=== PATIENT | male | born 1975 | race Caucasian/White ===

== ENCOUNTER 2016-08-22 12:23 | Observation (INO) | payer OTHER ==
[~2016-08-22] VITALS: Ht 162.6 cm; Wt 70.0 kg
[2016-08-22 12:29] VITALS: BP 102/66; PULSE 89; RESP 17; TEMP 98.1; O2SAT 98
--- NOTE | 2016-08-22 13:55 | PD ---
HPI Chief Complaint: Abdominal Pain Time Seen by Provider: 13:48 Travel History International Travel<30 days: No Contact w/Intl Traveler<30days: No Traveled to known affect area: No History of Present Illness HPI Patient is a 41-year-old male presenting to emergency department stating that he could not find his ep specialist and needs help finding her. He stated that he had abdominal pain but has paperwork from [facility] from earlier this morning. Patient states that he had been nauseated and vomiting throughout the night and went to the hospital because of the abdominal pain. He states he feels better now but cannot find his caregiver. He stated that she went to the wrong hospital. COUNTS INCLUDE 234 BEDS AT THE [facility] Past Medical History Hypertension: Yes Schizophrenia: Yes Seizures: Yes Past Surgical History Other Surgery: Yes (foot) Social History Alcohol Use: No Tobacco Use: Yes Substance Use: Yes (marijuana occasionally) Allergies-Medications (Allergen,Severity, Reaction): Coded Allergies: Fioricet (Verified Allergy, Unknown, 08/22/16) Review of Systems Except as stated in HPI: all other systems reviewed are Neg HENT: No: Headaches Cardiovascular: No: Chest Pain or Discomfort Respiratory: No: Shortness of Breath Gastrointestinal: No: Nausea, Abdominal Pain Genitourinary: No: Dysuria Neurologic: Positive: Change in Mentation, Other (appears confused) Physical Exam Narrative GENERAL: Well-developed, well-nourished, alert male. SKIN: Warm and dry. HEAD: Atraumatic. Normocephalic. EYES: Pupils equal and round. No scleral icterus. No injection or drainage. ENT: No nasal bleeding or discharge. Mucous membranes pink and moist. NECK: Trachea midline. No JVD. CARDIOVASCULAR: Regular rate and rhythm. No murmur appreciated. RESPIRATORY: No accessory muscle use. Clear to auscultation. Diminished with scattered wheezes GASTROINTESTINAL: Abdomen soft, non-tender, nondistended. Hepatic and splenic margins not palpable. MUSCULOSKELETAL: No obvious deformities. No clubbing. No cyanosis. No edema. NEUROLOGICAL: Awake and alert. No obvious cranial nerve deficits. Residual weakness in left upper And lower extremity, upper extremity with hand contracture. Patient is alert and oriented to self and knows he is in the hospital. PSYCHIATRIC: Appropriate mood and affect; insight and judgment normal. Data Data Last Documented VS Vital Signs Date Time Temp Pulse Resp B/P Pulse Ox O2 Delivery O2 Flow Rate FiO2 3/14/17 14:33 92 Room Air 08/22/16 12:29 98.1 89 17 102/[address] Brain W/O Iv Contrast(Rout) (08/22/16 ) Complete Blood Count With Diff (08/22/16 13:36) Comprehensive Metabolic Panel (08/22/16 13:36) Creatine Kinase (Cpk) (08/22/16 13:36) Prothrombin Time / Inr (Pt) (08/22/16 13:36) Act Partial Throm Time (Ptt) (08/22/16 13:36) Troponin I (08/22/16 13:36) Urinalysis - C+S If Indicated (08/22/16 13:36) Chest, Pa & Lat (08/22/16 13:36) Drug Screen, Random Urine (08/22/16 13:36) Electrocardiogram (08/22/16 ) Sulfamet-Trimeth Ds 800-160 Mg (Bactrim (08/22/16 15:15) Cephalexin (Keflex) (08/22/16 15:15) Admit Order (Ed Use Only) (08/22/16 15:34) Labs Laboratory Tests Test 08/22/16 13:55 White Blood Count 6.8 TH/MM3 Red Blood Count 4.55 MIL/MM3 Hemoglobin 13.5 GM/DL Hematocrit 39.9 % Mean Corpuscular Volume 87.8 FL Mean Corpuscular Hemoglobin 29.6 PG Mean Corpuscular Hemoglobin 33.7 % Concent Red Cell Distribution Width 16.1 % Platelet Count 299 TH/MM3 Mean Platelet Volume 7.4 FL Neutrophils (%) (Auto) 67.9 % Lymphocytes (%) (Auto) 16.8 % Monocytes (%) (Auto) 9.3 % Eosinophils (%) (Auto) 4.8 % Basophils (%) (Auto) 1.2 % Neutrophils # (Auto) 4.6 TH/MM3 Lymphocytes # (Auto) 1.1 TH/MM3 Monocytes # (Auto) 0.6 TH/MM3 Eosinophils # (Auto) 0.3 TH/MM3 Basophils # (Auto) 0.1 TH/MM3 CBC Comment DIFF FINAL Differential Comment Prothrombin Time 11.2 SEC Prothromb Time International 1.0 RATIO Ratio Activated Partial 30.4 SEC Thromboplast Time Sodium Level 140 MEQ/L Potassium Level 4.3 MEQ/L Chloride Level 106 MEQ/L Carbon Dioxide Level 24.8 MEQ/L Anion Gap 9 MEQ/L Blood Urea Nitrogen 23 MG/DL Creatinine 1.04 MG/DL Estimat Glomerular Filtration 78 ML/MIN Rate Random Glucose 88 MG/DL Calcium Level 8.4 MG/DL Total Bilirubin 0.3 MG/DL Aspartate Amino Transf 17 U/L (AST/SGOT) Alanine Aminotransferase 19 U/L (ALT/SGPT) Alkaline Phosphatase 77 U/L Total Creatine Kinase 238 U/L Troponin I LESS THAN 0.02 NG/ML Total Protein 7.1 GM/DL Albumin 3.7 GM/DL MDM Medical Decision Making Medical Screen Exam Complete: Yes Emergency Medical Condition: Yes Interpretation(s) Vital Signs Date Time Temp Pulse Resp B/P Pulse Ox O2 Delivery O2 Flow Rate FiO2 08/22/16 12:29 98.1 89 17 102/66 98 Differential Diagnosis CVA versus TIA versus residual effects of CVA versus UTI versus other Narrative Course Patient is a 41-year-old male with a medical history significant for seizures, schizophrenia, hypertension, CVA presenting to the emergency department needing help finding his ep specialist. He was seen and evaluated for the hospital earlier today and discharged with a prescription for Prilosec and ibuprofen. He was likely evaluated for the abdominal pain and nausea and vomiting that he initially stated that he was presenting here for. He reports feeling better and has not vomited. He appears slightly confused and his speech is slightly slurred again this could be secondary to residual effects of the prior CVA, labs and imaging ordered and pending rule out any new acute infarct. Workup initiated in triage, care of patient will be transferred to provide her with a medical bed is available. Valentina Ellsworth Aug 22, 2016 13:55
[2016-08-22 14:09] LABS: AUTOMATED NEUTROPHIL # 4.6 TH/MM3 (1.8-7.7); BASOPHIL # 0.1 TH/MM3 (0-0.2); BASOPHIL % 1.2 % (0.0-2.0); EOSINOPHIL # 0.3 TH/MM3 (0-0.4); EOSINOPHIL % 4.8 % (0.0-4.0); HEMATOCRIT 39.9 % (39.0-51.0); HEMO FLAGS DIFF FINAL; LYMPH % 16.8 % (9.0-44.0); LYMPHOCYTE # 1.1 TH/MM3 (1.0-4.8); MEAN CELL VOLUME 87.8 FL (80.0-100.0); MEAN CORPUSCULAR HEMOGLOBIN 29.6 PG (27.0-34.0); MEAN CORPUSCULAR HGB CONC 33.7 % (32.0-36.0); MONO % 9.3 % (0.0-8.0); NEUT % 67.9 % (16.0-70.0); PLATELET COUNT 299 TH/MM3 (150-450); RED BLOOD COUNT 4.55 MIL/MM3 (4.50-5.90); RED CELL DISTRIBUTION WIDTH 16.1 % (11.6-17.2); WHITE BLOOD COUNT 6.8 TH/MM3 (4.0-11.0)
--- NOTE | 2016-08-22 14:14 | RADRPT ---
EXAM DATE/TIME: 08/22/2016 14:02 [facility] COMPARISON: No previous studies available for comparison. INDICATIONS : Wheezing. MEDICAL HISTORY : Stroke. SURGICAL HISTORY : None. ENCOUNTER: Initial ACUITY: 1 day PAIN SCORE: 0/10 LOCATION: Bilateral chest FINDINGS: PA and lateral views of the chest demonstrates hyperinflation which can be seen with asthma/COPD. No infiltrates are seen. Heart is normal in size. The mediastinal contours are unremarkable. Osseous structures are intact. CONCLUSION: Hyperinflation which can be seen with asthma/COPD. No evidence for an infiltrate. Blunting of the le ft costophrenic angle and pleural thickening likely scarring. Dale Sinha MD on August 22, 2016 at 14:11 Board Certified Radiologist. This report was verified electronically.
[2016-08-22 14:19] LABS: APTT (PATIENT) 30.4 SEC (24.3-30.1); PROTHROMBIN TIME - PATIENT 11.2 SEC (9.8-11.6)
--- NOTE | 2016-08-22 14:22 | RADRPT ---
EXAM DATE/TIME: 08/22/2016 14:11 [facility] COMPARISON: No previous studies available for comparison. INDICATIONS : Altered mental status. RADIATION DOSE: 47.55 CTDIvol (mGy) MEDICAL HISTORY : Seizures. Hypertension. Schizophrenic SURGICAL HISTORY : Foot surgery ENCOUNTER: Initial ACUITY: 1 day PAIN SCALE: 3/10 LOCATION: Left TECHNIQUE: Multiple contiguous axial images were obtained of the head. Using automated exposure control and adj ustment of the mA and/or kV according to patient size, radiation dose was kept as low as reasonably a chievable to obtain optimal diagnostic quality images. FINDINGS: CEREBRUM: Large area of encephalomalacia or right middle cerebral artery distribution. The ventricles are hernando l for age. No evidence of midline shift, mass lesion, hemorrhage or acute infarction. No extra-axia l fluid collections are seen. POSTERIOR FOSSA: The cerebellum and brainstem are intact. The 4th ventricle is midline. The cerebellopontine angle i s unremarkable. EXTRACRANIAL: The visualized portion of the orbits is intact. SKULL: The calvaria is intact. No evidence of skull fracture. CONCLUSION: 1. Large area of encephalomalacia throughout the right cerebral hemisphere likely old infarct. 2. No midline shift or mass effect. Dale Sinha MD on August 22, 2016 at 14:19 Board Certified Radiologist. This report was verified electronically.
[2016-08-22 14:26] LABS: ALT (GPT) 19 U/L (12-78); ANION GAP 9 MEQ/L (5-15); AST (GOT) 17 U/L (15-37); BICARBONATE 24.8 MEQ/L (21.0-32.0); BLOOD UREA NITROGEN 23 MG/DL (7-18); CHLORIDE 106 MEQ/L (98-107); GLOMERULAR FILTRATION RATE 78 ML/MIN (>89); POTASSIUM 4.3 MEQ/L (3.5-5.1); SODIUM (NA) 140 MEQ/L (136-145)
[2016-08-22 14:29] LABS: ALKALINE PHOSPHATASE 77 U/L (45-117); CREATINE KINASE 238 U/L (39-308); TOTAL BILIRUBIN ADULT 0.3 MG/DL (0.2-1.0)
--- NOTE | 2016-08-22 14:41 | PD ---
Physical Exam Time Seen by Provider: 14:32 Narrative 41-year-old male with a history of CVA with left-sided deficits, seizure disorder, schizophrenia presents to the emergency department asking for help finding his caregiver. Patient was seen by provider in triage who initiated workup, please see her documentation. The patient states that for the past 3 days he's had a "spider bite" on his right forearm with some surrounding erythema and tenderness. States that yesterday he thinks this began to make him sick so he was vomiting and unable to keep any food down so his caregiver called EMS which then transported him to [facility]. States that he was seen, evaluated and discharged from there this morning, he has the discharge paperwork with him and hand. States that they would not let him stay at that facility and wait for his caregiver so they gave him a bus pass and he rode the bus over to our hospital. States that he thinks his caregiver went to the wrong hospital to find him which is why he is here trying to find her. States that he hasn't been vomiting since he was seen at [facility] this morning, is feeling better in regards to this complaint. He denies any fever, chills, abdominal pain, chest pain, shortness of breath, cough or cold symptoms , new weakness or numbness or tingling. He states that he has chronic left- sided facial, arm and leg weakness secondary to stroke 2 years ago. No other complaints. GENERAL: Well-nourished and well-developed pleasant male patient in no acute distress with obvious left-sided deficits. SKIN: Warm and dry. There is cellulitis to the volar right forearm, no fluctuance, no discharge or drainage. HEAD: Normocephalic and atraumatic. EYES: No injection, drainage, or hyphema noted. PERRLA. EOMI. ENT: No nasal drainage noted. Oropharynx is clear. NECK: Supple and the trachea is midline. CARDIOVASCULAR: Regular rate and rhythm. RESPIRATORY: Breath sounds are equal bilaterally with no accessory muscle use, wheezing, rhonchi, or crackles. GASTROINTESTINAL: Abdomen is soft, non-tender, and nondistended. MUSCULOSKELETAL: No obvious deformities, swelling, cyanosis, or ecchymosis is present throughout the upper and lower extremities. NEUROLOGICAL: Awake, alert, and oriented. Normal speech and gait. Cranial nerves are grossly intact. Data Data Last Documented VS Vital Signs Date Time Temp Pulse Resp B/P Pulse Ox O2 Delivery O2 Flow Rate FiO2 08/22/16 14:33 92 Room Air 08/22/16 12:29 98.1 89 17 102/[address] Brain W/O Iv Contrast(Rout) (08/22/16 ) Complete Blood Count With Diff (08/22/16 13:36) Comprehensive Metabolic Panel (08/22/16 13:36) Creatine Kinase (Cpk) (08/22/16 13:36) Prothrombin Time / Inr (Pt) (08/22/16 13:36) Act Partial Throm Time (Ptt) (08/22/16 13:36) Troponin I (08/22/16 13:36) Urinalysis - C+S If Indicated (08/22/16 13:36) Chest, Pa & Lat (08/22/16 13:36) Drug Screen, Random Urine (08/22/16 13:36) Electrocardiogram (08/22/16 ) Sulfamet-Trimeth Ds 800-160 Mg (Bactrim (08/22/16 15:15) Cephalexin (Keflex) (08/22/16 15:15) Admit Order (Ed Use Only) (08/22/16 15:34) Diet Regular Basic (08/22/16 Dinner) Labs Laboratory Tests Test 08/22/16 13:55 White Blood Count 6.8 TH/MM3 Red Blood Count 4.55 MIL/MM3 Hemoglobin 13.5 GM/DL Hematocrit 39.9 % Mean Corpuscular Volume 87.8 FL Mean Corpuscular Hemoglobin 29.6 PG Mean Corpuscular Hemoglobin 33.7 % Concent Red Cell Distribution Width 16.1 % Platelet Count 299 TH/MM3 Mean Platelet Volume 7.4 FL Neutrophils (%) (Auto) 67.9 % Lymphocytes (%) (Auto) 16.8 % Monocytes (%) (Auto) 9.3 % Eosinophils (%) (Auto) 4.8 % Basophils (%) (Auto) 1.2 % Neutrophils # (Auto) 4.6 TH/MM3 Lymphocytes # (Auto) 1.1 TH/MM3 Monocytes # (Auto) 0.6 TH/MM3 Eosinophils # (Auto) 0.3 TH/MM3 Basophils # (Auto) 0.1 TH/MM3 CBC Comment DIFF FINAL Differential Comment Prothrombin Time 11.2 SEC Prothromb Time International 1.0 RATIO Ratio Activated Partial 30.4 SEC Thromboplast Time Sodium Level 140 MEQ/L Potassium Level 4.3 MEQ/L Chloride Level 106 MEQ/L Carbon Dioxide Level 24.8 MEQ/L Anion Gap 9 MEQ/L Blood Urea Nitrogen 23 MG/DL Creatinine 1.04 MG/DL Estimat Glomerular Filtration 78 ML/MIN Rate Random Glucose 88 MG/DL Calcium Level 8.4 MG/DL Total Bilirubin 0.3 MG/DL Aspartate Amino Transf 17 U/L (AST/SGOT) Alanine Aminotransferase 19 U/L (ALT/SGPT) Alkaline Phosphatase 77 U/L Total Creatine Kinase 238 U/L Troponin I LESS THAN 0.02 NG/ML Total Protein 7.1 GM/DL Albumin 3.7 GM/DL MDM Supervised Visit with WILLIS: No Differential Diagnosis Cellulitis versus gastroenteritis versus electrolyte abnormality versus medical clearance Narrative Course 41-year-old male presents to the emergency department requesting help finding his caregiver. Patient is afebrile, vital signs are stable. He has a history of stroke and is unable to care for himself at home and therefore has a caregiver that helps him with ADLs. He was taken to [facility] this morning by EMS and from his caregiver. He came to our hospital hoping that she would be here. He has not have a cell phone and does not remember her phone number. Of note he does have cellulitis to the right forearm that we'll treat with antibiotics. Labs and imaging were ordered by triage provider. CBC is unremarkable. CMP is unremarkable. Troponin is less than 0.02. Coags are unremarkable. Chest x-ray is negative for any acute abnormalities. Head CT shows large area of encephalomalacia throughout the right cerebral hemisphere likely old infarct. No midline shift or mass effect. Labs and imaging are unremarkable for any acute abnormalities. Unfortunately case management and nursing staff were unable to contact any of the patient's family members or his caregiver. The patient will be kept in 23 hour observation until he can be safely discharged. Physician Communication Physician Communication I spoke with Dr. Duff [facility] who graciously agrees to keep the patient under observation under his service. Diagnosis Primary Impression: Right forearm cellulitis Additional Impression: History of inability to perform activities of daily living Admitting Information Admitting Physician Requests: Observation Lyssa Gonzalez Aug 22, 2016 14:41
[2016-08-22] MEDS ORDERED: SULFAMETHOXAZOLE-TRIMETHOPRIM DS 800-160 MG TAB PO ONE (15:15)
[2016-08-22] MEDS ORDERED: CEPHALEXIN MONOHYDRATE 500 MG CAP PO ONE (15:15)
[2016-08-22] MEDS ORDERED: NALOXONE HCL 0.4 MG/ML AMP IV PRN (16:30)
[2016-08-22] MEDS ORDERED: SODIUM CHLORIDE 0.9% FLUSH 5 ML FLUSH FLUSH PRN (16:30)
--- NOTE | 2016-08-22 16:47 | HHI.HP ---
[facility] Primary Care Physician No Primary Care Physician Admission Diagnosis Right Forearm Cellulitis, Inability to Care for Self Diagnoses: Chief Complaint: Right forearm cellulitis, inability to care for self Travel History International Travel<30 Days: No Contact w/Intl Traveler <30 Da: No Traveled to Known Affected Are: No History of Present Illness Patient is a 41-year-old male with primary medical history of HTN, seizure, CVA with left-sided weakness, COPD, schizophrenia who came into the hospital stating that he could not find his animal care giver and needs health finding her. Earlier today patient was at [facility] for complaints of nausea and vomiting throughout the night and also abdominal pain. Patient also complains of a spider bite on his right forearm has been there for 3 days. Notable surrounding erythema, edema and tenderness. Complains of feeling cold, some chills, occasional cough but nothing expectorated. Patient is a smoker 1-1/2 pack per day. Denies any abdominal pain, cramping, nausea, vomiting. Requesting to have food. Patient's main concern is looking for his caregiver. Otherwise, denies pain and discomfort. Denies SOB/ dyspnea. Denies chest pain , palpitations, headaches, dizziness. Denies fevers, n/v/d. CBC unremarkable. CMP unremarkable. Troponin is less than 0.02. Coags unremarkable. EKG reviewed sinus rhythm with no acute acute ST changes. Head CT showed large area of Ancef follow mass medication throughout the right cerebral hemisphere likely old infarct. No midline shift or mass effect. Chest x-ray showed hyperinflation which can be seen with asthma/COPD. No evidence of an infiltrate. Blunting of the left costophrenic angle pleural thickening likely scarring. The patient smokes and has chronic shortness of breath. He thinks his shortness of breath might be a little worse at this time. He also has been expectorating a little mucus. He feels like he was bitten by an insect on his right elbow area as he has redness and pain there. He is unsure of how to contact his caregivers and does not know their phone numbers. Review of Systems Except as stated in HPI: all other systems reviewed are Neg Past Family Social History Past Medical History HTN COPD Seizure on Dilantin CVA with left-sided weakness Past Surgical History Foot surgery Reported Medications Dilantin Allergies: Coded Allergies: Fioricet (Verified Allergy, Unknown, 08/22/16) Family History That his diabetes, hypertension Mom has hypertension Social History Denies alcohol use Current day smoker smokes cigarettes 1-1/2 pack per day Occasional marijuana use, not daily Physical Exam Vital Signs Vital Signs Date Time Temp Pulse Resp B/P Pulse Ox O2 Delivery O2 Flow Rate FiO2 08/22/16 14:33 92 Room Air 08/22/16 12:29 98.1 89 17 102/66 98 Physical Exam GENERAL: This is a well-nourished, older than stated age, in no apparent distress. SKIN: Right forearm lesion erythema, edema, and tenderness to palpation. HEAD: Atraumatic. Normocephalic. No temporal or scalp tenderness. EYES: Pupils equal round and reactive. Extraocular motions intact. No scleral icterus. No injection or drainage. ENT: Nose without bleeding. Throat without erythema. Uvula midline. Airway patent. NECK: Trachea midline. No JVD or lymphadenopathy. Supple, nontender, no meningeal signs. CARDIOVASCULAR: Regular rate and rhythm without murmurs, gallops, or rubs. RESPIRATORY: Mild expiratory wheeze. Breath sounds equal bilaterally. GASTROINTESTINAL: Abdomen soft, non-tender, nondistended. Bowel sounds active 4 MUSCULOSKELETAL: Extremities without clubbing, cyanosis, or edema. Left hand contracture. Left lower extremity weaker than right lower extremity. NEUROLOGICAL: Awake and alert. Anxious. Slurred speech. Left-sided weakness notable with left hand contracture. Laboratory Laboratory Tests Test 08/22/16 13:55 White Blood Count 6.8 Red Blood Count 4.55 Hemoglobin 13.5 Hematocrit 39.9 Mean Corpuscular Volume 87.8 Mean Corpuscular Hemoglobin 29.6 Mean Corpuscular Hemoglobin 33.7 Concent Red Cell Distribution Width 16.1 Platelet Count 299 Mean Platelet Volume 7.4 Neutrophils (%) (Auto) 67.9 Lymphocytes (%) (Auto) 16.8 Monocytes (%) (Auto) 9.3 Eosinophils (%) (Auto) 4.8 Basophils (%) (Auto) 1.2 Neutrophils # (Auto) 4.6 Lymphocytes # (Auto) 1.1 Monocytes # (Auto) 0.6 Eosinophils # (Auto) 0.3 Basophils # (Auto) 0.1 CBC Comment DIFF FINAL Differential Comment Prothrombin Time 11.2 Prothromb Time International 1.0 Ratio Activated Partial 30.4 Thromboplast Time Sodium Level 140 Potassium Level 4.3 Chloride Level 106 Carbon Dioxide Level 24.8 Anion Gap 9 Blood Urea Nitrogen 23 Creatinine 1.04 Estimat Glomerular Filtration 78 Rate Random Glucose 88 Calcium Level 8.4 Total Bilirubin 0.3 Aspartate Amino Transf 17 (AST/SGOT) Alanine Aminotransferase 19 (ALT/SGPT) Alkaline Phosphatase 77 Total Creatine Kinase 238 Troponin I LESS THAN 0.02 Total Protein 7.1 Albumin 3.7 Result Diagram: 08/22/16 1355 08/22/16 1355 Assessment and Plan Problem List: (1) Right forearm cellulitis ICD Code: L03.113 Status: Acute (2) History of inability to perform activities of daily living ICD Code: Z87.898 Status: Acute (3) COPD (chronic obstructive pulmonary disease) ICD Code: J44.9 Status: Chronic (4) Seizure disorder ICD Code: G40.909 Status: Chronic (5) HTN (hypertension) ICD Code: I10 Status: Chronic (6) CVA, old, hemiparesis ICD Code: I69.359 Status: Chronic Assessment and Plan Patient is a 41-year-old male with primary medical history of HTN, seizure, CVA with left-sided weakness, COPD, schizophrenia who came into the hospital stating that he could not find his animal care giver and needs help finding her. Earlier today patient was at [facility] for complaints of nausea and vomiting throughout the night and also abdominal pain. Patient also complains of a spider bite on his right forearm has been there for 3 days. Notable surrounding erythema, edema and tenderness. Complains of feeling cold, some chills, occasional cough but nothing expectorated. Patient is a smoker 1-1/2 pack per day. Requesting to have food. Patient's main concern is looking for his caregiver. CVA with left-sided weakness Seizure disorder - Head CT showed large area of Ancef follow mass medication throughout the right cerebral hemisphere likely old infarct. No midline shift or mass effect. - Physical therapy eval and treat - Seizure precaution - Needs medication reconciliation for Dilantin dose - Ativan when necessary Resume home medications once home medications are reconciled. Physical therapy. Spider bite, wound lesion - Patient was given Bactrim 1 dose, Keflex 1 dose in ED The patient has what appears to be cellulitis of the right arm. Start clindamycin and monitor. HTN - monitor BP trend. Recent BP 102/66. COPD Tobacco abuse - counseled. Nicotine patch. Patient agrees with nicotine patch use. - DuoNeb's when necessary. - Chest x-ray showed hyperinflation which can be seen with asthma/COPD. No evidence of an infiltrate. Blunting of the left costophrenic angle pleural thickening likely scarring. Standing duo nebs for now. Encourage ambulation. Smoking cessation instruction. Case management - need to find patient's caregiver. Discharge planning needed for safe discharge. DVT prop SCDs Written by [employer], on behalf of of Dr. Duff on 08/22/16 at 16:47. Code Status Full code Discussed Condition With Patient, nursing Attending Statement The exam, history, and the medical decision-making described in the above note were completed with the assistance of the mid-level provider. I reviewed and agree with the findings presented. I attest that I had a [id number] encounter with the patient on the same day, and personally performed and documented my assessment and findings in the medical record. Urbano Petersen Aug 22, 2016 16:47 Kamron Duff DO Aug 22, 2016 19:03
[2016-08-22] MEDS ORDERED: RESP: ALBUTEROL 2.5 MG/IPRATROPIUM 0.5 MG NEB (PRN) NEB (17:00)
[2016-08-22] MEDS: REMOVE OLD NICODERM (NICOTINE) PATCH TD SCH (17:00)
[2016-08-22 17:23] VITALS: BP 113/62; O2SAT 99
[2016-08-22] MEDS: NICOTINE 21 MG/24 HR PATCH TD SCH (18:52)
[2016-08-22] MEDS: SODIUM CHLORIDE 0.9% FLUSH 5 ML FLUSH FLUSH SCH (20:26)
[2016-08-22 21:10] VITALS: O2SAT 98
[2016-08-22] MEDS: RESP: ALBUTEROL 2.5 MG/IPRATROPIUM 0.5 MG NEB (SCH) NEB (21:10)
[2016-08-23] MEDS: CLINDAMYCIN 150 MG CAP PO SCH ×3 (00:20→11:47)
[2016-08-23] MEDS ORDERED: ONDANSETRON HCL 4 MG/2 ML VIAL IV PUSH PRN (01:30)
[2016-08-23] MEDS ORDERED: MORPHINE SULFATE 4 MG/ML INJ IV PUSH ONE (02:30)
[2016-08-23] MEDS: RESP: ALBUTEROL 2.5 MG/IPRATROPIUM 0.5 MG NEB (SCH) NEB ×2 (03:28→11:02)
[2016-08-23 04:30] VITALS: BP 133/89; PULSE 82; RESP 18; TEMP 97.8; O2SAT 97
[2016-08-23 06:02] LABS: BASOPHIL # 0.1 TH/MM3 (0-0.2); EOSINOPHIL # 0.2 TH/MM3 (0-0.4); EOSINOPHIL % 4.2 % (0.0-4.0); HEMATOCRIT 36.9 % (39.0-51.0); HEMO FLAGS DIFF FINAL; MEAN CELL VOLUME 87.4 FL (80.0-100.0); MEAN CORPUSCULAR HEMOGLOBIN 29.4 PG (27.0-34.0); MEAN CORPUSCULAR HGB CONC 33.6 % (32.0-36.0); MONO % 9.6 % (0.0-8.0); NEUT % 51.2 % (16.0-70.0); PLATELET COUNT 278 TH/MM3 (150-450); RED BLOOD COUNT 4.22 MIL/MM3 (4.50-5.90); WHITE BLOOD COUNT 5.9 TH/MM3 (4.0-11.0)
[2016-08-23 06:33] LABS: ALKALINE PHOSPHATASE 67 U/L (45-117); ALT (GPT) 16 U/L (12-78); ANION GAP 7 MEQ/L (5-15); AST (GOT) 12 U/L (15-37); BICARBONATE 27.1 MEQ/L (21.0-32.0); BLOOD UREA NITROGEN 23 MG/DL (7-18); CHLORIDE 106 MEQ/L (98-107); GLOMERULAR FILTRATION RATE 62 ML/MIN (>89); POTASSIUM 4.2 MEQ/L (3.5-5.1); SODIUM (NA) 140 MEQ/L (136-145); TOTAL BILIRUBIN ADULT 0.2 MG/DL (0.2-1.0)
[2016-08-23 07:55] VITALS: BP 97/66; PULSE 63; RESP 19; TEMP 96.5; O2SAT 97
[2016-08-23] MEDS: REMOVE OLD NICODERM (NICOTINE) PATCH TD SCH (09:00)
[2016-08-23] MEDS: SODIUM CHLORIDE 0.9% FLUSH 5 ML FLUSH FLUSH SCH (09:00)
[2016-08-23] MEDS: NICOTINE 21 MG/24 HR PATCH TD SCH (10:39)
[2016-08-23] MEDS: LACTOBACILLUS ACIDOPHILUS TAB PO SCH ×2 (10:39→13:32)
[2016-08-23] MEDS ORDERED: LORazepam 0.5 MG TAB PO PRN (11:00)
[2016-08-23 11:02] VITALS: O2SAT 93
[2016-08-23 11:39] VITALS: BP 106/62; PULSE 67; RESP 20; TEMP 96.6; O2SAT 94
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
[2016-08-23] MEDS ORDERED: HYDR-3516 PO (12:45)
[2016-08-23] MEDS ORDERED: ACETAMINOPHEN/HYDROcodone 325 MG/5 MG TAB PO PRN (12:45)
[2016-08-23] MEDS ORDERED: LACT PO (12:45)
[2016-08-23] MEDS ORDERED: CLIN150 PO (12:45)
[2016-08-23] MEDS ORDERED: NICO21DI2 TD (12:45)
--- NOTE | 2016-08-23 12:46 | HHI.DCPOC ---
Discharge Care Plan Diagnosis: (1) Seizure disorder (2) COPD (chronic obstructive pulmonary disease) (3) CVA, old, hemiparesis (4) Abscess Goals to Promote Your Health * To prevent worsening of your condition and complications * To maintain your health at the optimal level Directions to Meet Your Goals Take your medications as prescribed Follow your dietary instruction Follow activity as directed Keep your appointments as scheduled Take your immunizations and boosters as scheduled If your symptoms worsen call your PCP, if no PCP go to Urgent Care Center or Emergency Room Smoking is Dangerous to Your Health. Avoid second hand smoke Call the 24-hour hour crisis hotline for domestic abuse at Kamron Duff DO Aug 23, 2016 12:46
[2016-08-23 13:01] LABS: BLOOD, URINE NEG (NEG); GLUCOSE,URINE NEG (NEG); KETONE, URINE NEG (NEG); MUCUS URINE FEW /lpf (OCC); NITRITE,URINE NEG (NEG); PH, URINE 6.5 (5.0-8.5); SQUAMOUS EPITHELIAL CELL URINE <1 /hpf (0-5); URINE COLOR LIGHT-YELLOW (YELLW/STRAW)
[2016-08-23 13:03] LABS: COMMENT (UR) CATH-CULT NOT IND; CULTURE IF INDICATED CATH CULTURE NOT IND
[2016-08-23 13:10] LABS: AMPHETAMINE, URINE POS (NEG); BARBITURATES, URINE NEG (NEG); COCAINE, URINE NEG (NEG)
[2016-08-23 14:45] VITALS: RESP 20
[2016-08-23] MEDS ORDERED: CLINDAMYCIN 150 MG CAP PO SCH (18:00)
[2016-08-23] MEDS ORDERED: LISI-515 PO (18:50)
[2016-08-23] MEDS ORDERED: QUET1TAB9 PO (18:50)
[2016-08-23] MEDS ORDERED: PHEN100C PO (18:50)
[2016-08-23] MEDS ORDERED: OXCA300T PO (18:50)
[2016-08-23] MEDS ORDERED: TRAZ100T4 PO (18:50)
[2016-08-23] MEDS ORDERED: CLON1TAB PO (18:50)
[2016-08-23] MEDS ORDERED: DIVA500T PO (18:50)
[2016-08-23] MEDS ORDERED: MIRTA15 PO (18:50)
[2016-08-23] MEDS ORDERED: BUPR150T12 PO (18:50)
[2016-08-23] MEDS ORDERED: VENL150C39 PO (18:50)
--- NOTE | 2016-08-23 20:22 | EKG ---
Date Performed: 08/22/2016 Time Performed: 13:44:50 PTAGE: 41 years EKG: Sinus rhythm WITH SINUS ARRHYTHMIA NORMAL ECG NO PREVIOUS TRACING DOCTOR: Mary Moore Interpretating Date/Time 08/23/2016 20:20:19
== END 2016-08-23 15:43 | disposition home or self-care (01) ==
LOC: NEPC 12:23 → NEDA 15:37 → NEPGCP 17:44
PROVIDERS: ADMIT Hospitalist; ATTEND Hospitalist
DX: T63.301A Toxic effect of unspecified spider venom, accidental (unintentional), initial encounter (principal); L03.113 Cellulitis of right upper limb; I10 Essential (primary) hypertension; I69.954 Hemiplegia and hemiparesis following unspecified cerebrovascular disease affecting left non-dominant side; J44.9 Chronic obstructive pulmonary disease, unspecified; F20.9 Schizophrenia, unspecified; F17.210 Nicotine dependence, cigarettes, uncomplicated; G40.909 Epilepsy, unspecified, not intractable, without status epilepticus; Z88.8 Allergy status to other drugs, medicaments and biological substances; Z87.898 Personal history of other specified conditions; W57.XXXA Bitten or stung by nonvenomous insect and other nonvenomous arthropods, initial encounter
CPT/HCPCS: 70450; 71020; 80053; 80307; 81001; 82550; 84484; 85025; 85610; 85730; 92610; 93005; 94640; 94664; 96125; 97163; 99285; G0378; G8987; G8988; G8996; G8997; G8998; G9168; G9169; G9170; J2270; J2405

== ENCOUNTER 2016-08-23 18:00 | Emergency (ER) | payer OTHER ==
[~2016-08-23] VITALS: Ht 172.7 cm; Wt 68.0 kg
[2016-08-23 18:00] VITALS: BP 107/73; PULSE 58; RESP 16; TEMP 97.6; O2SAT 96
[~2016-08-23 18:00] MED LIST: CLIN150 PO; HYDR-3516 PO; LACT PO; NICO21DI2 TD
--- NOTE | 2016-08-23 18:21 | PD ---
HPI Chief Complaint: SEIZURE Time Seen by Provider: 18:20 Travel History International Travel<30 days: No Contact w/Intl Traveler<30days: No History of Present Illness HPI 41-year-old male with a history of CVA with left-sided deficits, seizure disorder and schizophrenia presents to the emergency department for evaluation of seizure. He was brought by EMS having reportedly had a seizure witnessed by his caregiver and friends. The patient states that he was in a convenience store and remembers feeling dizzy and then falling onto the floor. Denies head trauma or loss of consciousness. States that he thinks he had a seizure, he was told by his caregiver that he had a seizure. States that he thinks he has not taken his Dilantin in several days. Denies drug or alcohol use. Denies any headache, lightheadedness, nausea, vomiting, tongue biting, urinary incontinence, numbness or tingling, weakness. No other complaints. PFSH Past Medical History Anxiety: Yes Depression: Yes Cancer: No Cardiovascular Problems: No COPD: No (bronchitis) Diabetes: No Endocrine: No Genitourinary: No Hypertension: Yes Immune Disorder: No Musculoskeletal: Yes (left sided weakness upper and lower extremeties) Neurologic: Yes (left cva with left eye blindness, can see a little out of the right eye) Psychiatric: Yes (schizophrenic and bipolar) Reproductive: No Respiratory: Yes Schizophrenia: Yes Seizures: Yes Thyroid Disease: No Past Surgical History Other Surgery: Yes (foot) Social History Alcohol Use: No Tobacco Use: Yes Substance Use: Yes (marijuana) Allergies-Medications (Allergen,Severity, Reaction): Coded Allergies: Fioricet (Verified Allergy, Unknown, 08/23/16) Reported Meds & Prescriptions Reported Meds & Active Scripts Active Acidophilus/l-Sporogenes (Lactobacillus Acidophilus) 1 Tab Tab 1 Tab PO TID Nicotine Patch (Nicotine) 21 Mg/24 Hr Patch 1 Patch TD DAILY Hydrocodone-Acetaminophen 5-325 mg Tab 1 Tab PO Q4H PRN Cleocin (Clindamycin HCl) 150 Mg Cap 450 Mg PO Q6HR Reported Clonazepam 1 Mg Tab 1 Mg PO TID Oxcarbazepine 300 Mg Tab 300 Mg PO BID Bupropion Sr 12 HR (Bupropion ER 12 HR (Smoking Deterrent)) 150 Mg Tab 100 Mg PO BID Take 1 tablet daily x 3 days then twice daily thereafter. Lisinopril 20 Mg Tab 20 Mg PO DAILY Venlafaxine ER 24 HR (Venlafaxine HCl) 150 Mg Cap 150 Mg PO DAILY Trazodone (Trazodone HCl) 100 Mg Tab 100 Mg PO HS Mirtazapine 15 Mg Tab 15 Mg PO HS Divalproex DR (Divalproex Sodium) 500 Mg Tabdr 500 Mg PO HS Quetiapine (Quetiapine Fumarate) 200 Mg Tab 200 Mg PO HS Phenytoin Extended 100 Mg Cap 100 Mg PO HS Review of Systems Except as stated in HPI: all other systems reviewed are Neg Physical Exam Narrative GENERAL: Well-nourished and well-developed male patient in no acute distress who is nontoxic appearing. Obvious left-sided deficits chronic per patient. SKIN: Warm and dry. HEAD: Normocephalic and atraumatic. EYES: No injection, drainage, or hyphema noted. PERRLA. EOMI. ENT: No nasal drainage noted. Oropharynx is clear. NECK: Supple and the trachea is midline. CARDIOVASCULAR: Regular rate and rhythm. RESPIRATORY: Breath sounds are equal bilaterally with no accessory muscle use, wheezing, rhonchi, or crackles. GASTROINTESTINAL: Abdomen is soft, non-tender, and nondistended. MUSCULOSKELETAL: No obvious deformities, swelling, cyanosis, or ecchymosis is present throughout the upper and lower extremities. Patient has full range of motion without any signs of neurovascular compromise. NEUROLOGICAL: Awake, alert, and oriented. Normal speech and gait. Cranial nerves are grossly intact. Data Data Last Documented VS Vital Signs Date Time Temp Pulse Resp B/P Pulse Ox O2 Delivery O2 Flow Rate FiO2 08/23/16 18:00 97.6 58 16 107/73 96 Orders Basic Metabolic Panel (Bmp) (08/23/16 18:17) Phenytoin (Dilantin) (08/23/16 18:17) Fosphenytoin Inj (Cerebyx Inj) (08/23/16 19:45) Labs Laboratory Tests Test 08/23/16 18:55 Sodium Level 138 MEQ/L Potassium Level 4.1 MEQ/L Chloride Level 102 MEQ/L Carbon Dioxide Level 29.4 MEQ/L Anion Gap 7 MEQ/L Blood Urea Nitrogen 22 MG/DL Creatinine 1.06 MG/DL Estimat Glomerular Filtration 77 ML/MIN Rate Random Glucose 98 MG/DL Calcium Level 8.6 MG/DL Phenytoin (Dilantin) Level 0.8 MCG/ML MDM Medical Decision Making Medical Screen Exam Complete: Yes Emergency Medical Condition: Yes Differential Diagnosis Seizure versus medication noncompliance versus malingering Narrative Course 41-year-old male is brought to the emergency department by EMS for evaluation of seizure. Patient is afebrile, vital signs are stable. Physical examination is unremarkable. Patient was seen in our emergency department yesterday by this provider because he had lost his caregiver and did not have a ride home and was an unsafe discharge due to his encephalomalacia secondary to stroke. He was admitted to our hospital and was just discharged this morning only a few hours ago. He had lab work this morning that was unremarkable. 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 We'll check a BMP and Dilantin level. If these are unremarkable the patient will be discharged. BMP is unremarkable. Dilantin level is 0.8. Patient is given a loading dose of fosphenytoin 1 g IV. She has Dilantin pills with him, I looked at the bottle, he is just not taking them. I did stress the importance of taking his medications as prescribed. He is instructed to follow up as an outpatient with his PCP. Patient is stable for discharge. I discussed the case with my attending physician Dr. Garcia who is aware of the patients history, physical examination findings, and treatment plan. Diagnosis Primary Impression: Seizure disorder Additional Impression: Noncompliance with medication regimen Referrals: Primary Care Physician Patient Instructions: General Instructions, Recurrent Seizures in Adults (ED) Additional Instructions: You need to take your seizure medication as prescribed by your physician. Follow-up with your Primary Care Physician. Return to the ED for any acute worsening of symptoms. Med/Other Pt SpecificInfo: No Change to Meds Disposition: 01 DISCHARGE HOME Condition: Stable Lyssa Gonzalez Aug 23, 2016 18:21
[2016-08-23] MEDS ORDERED: PHEN100C PO (18:50)
[2016-08-23] MEDS ORDERED: DIVA500T PO (18:50)
[2016-08-23] MEDS ORDERED: OXCA300T PO (18:50)
[2016-08-23] MEDS ORDERED: CLON1TAB PO (18:50)
[2016-08-23] MEDS ORDERED: LISI-515 PO (18:50)
[2016-08-23] MEDS ORDERED: MIRTA15 PO (18:50)
[2016-08-23] MEDS ORDERED: QUET1TAB9 PO (18:50)
[2016-08-23] MEDS ORDERED: BUPR150T12 PO (18:50)
[2016-08-23] MEDS ORDERED: VENL150C39 PO (18:50)
[2016-08-23] MEDS ORDERED: TRAZ100T4 PO (18:50)
[2016-08-23 19:25] LABS: BICARBONATE 29.4 MEQ/L (21.0-32.0); POTASSIUM 4.1 MEQ/L (3.5-5.1)
[2016-08-23] MEDS ORDERED: FOSPHENYTOIN INJ 1,000 MGPE in SODIUM CHLORIDE 0.9% INJ 50 ML IV ONE (19:45)
[2016-08-23] MEDS ORDERED: diphenhydrAMINE HCL 50 MG/ML VIAL IV PUSH ONE (20:15)
== END 2016-08-23 22:50 | disposition home or self-care (01) ==
LOC: NEPE 18:00
DX: G40.909 Epilepsy, unspecified, not intractable, without status epilepticus (principal); I10 Essential (primary) hypertension; H54.42 Blindness, left eye, normal vision right eye; F12.90 Cannabis use, unspecified, uncomplicated; Z91.14 Patient's other noncompliance with medication regimen
CPT/HCPCS: 80048; 80185; 96374; 96375; 99284; J1200; Q2009